=== PATIENT | female | born 1985 | race Hispanic/Latino ===

== ENCOUNTER → 2024-04-06 | Outpatient (CLI) | payer MEDICAID | END | disposition home or self-care (01) | LOC: RAH 07:18 | PROVIDERS: ATTEND Surgery | DX: K31.84 Gastroparesis (principal) | CPT/HCPCS: 78264; A9541 ==

== ENCOUNTER 2025-09-15 06:16 | Day surgery (SDC) | payer MEDICAID ==
[2025-09-15] VITALS (17 sets, daily range): BP systolic 104–122; BP diastolic 70–84; PULSE 75–93; RESP 14–18; TEMP 96.9–97.7
[~2025-09-15] VITALS: Ht 152.4 cm; Wt 43.1 kg
[~2025-09-15 06:16] MED LIST: ACAR50TA5 PO; LINA290C PO; OCTR50DI2 IJ; ONDA-104 PO; PANT40TA54 PO; PREG150C PO; PROM25TA7 PO; VENL-53 PO; ZOLP-685 PO
[2025-09-15] MEDS: 0.9%NACL 1000ML 1,000 ML IV ONE (06:47)
[2025-09-15] MEDS ORDERED: MIDAZOLAM HCL 1 MG/ML 2ML VIAL ONE (06:53)
[2025-09-15] MEDS ORDERED: LIDOCAINE PF 100MG/5ML (2%) SYRINGE 5ML ONE (06:54)
[2025-09-15] MEDS: DEXTROSE 50%-WATER 50 ML DISP.SYRIN IV ONE (07:42)
[2025-09-15] MEDS ORDERED: SUCCINYLCHOLINE CHLORIDE 20 MG/ML 10 ML VIAL ONE (08:01)
[2025-09-15] MEDS ORDERED: ATROPINE 1MG SYG IVP ONE (08:01)
== END 2025-09-15 11:25 | disposition home or self-care (01) ==
LOC: ENDO 06:16 → DAH 06:16 → ENDO 11:25
PROVIDERS: ATTEND Surgery
DX: K30 Functional dyspepsia (principal); K91.89 Other postprocedural complications and disorders of digestive system; K22.89 Other specified disease of esophagus; E03.9 Hypothyroidism, unspecified; F41.9 Anxiety disorder, unspecified; F32.A Depression, unspecified; G43.909 Migraine, unspecified, not intractable, without status migrainosus; E11.42 Type 2 diabetes mellitus with diabetic polyneuropathy; K21.9 Gastro-esophageal reflux disease without esophagitis; K25.3 Acute gastric ulcer without hemorrhage or perforation; K44.9 Diaphragmatic hernia without obstruction or gangrene; K31.84 Gastroparesis; K91.1 Postgastric surgery syndromes; Z98.891 History of uterine scar from previous surgery; Z98.84 Bariatric surgery status; Z90.49 Acquired absence of other specified parts of digestive tract; Z88.5 Allergy status to narcotic agent; Z79.899 Other long term (current) drug therapy; Z98.890 Other specified postprocedural states
CPT/HCPCS: 84703; 82948 ×6; 36415; 43270; C9901; J3010; J1100; J0330; J7030 ×2; J7070; J3490; J2003; J0461; J2250; J2704; J2405; J2270; J2371; C1726; A4215; A4657 ×2; A7002